=== PATIENT | male | born 1985 | race Caucasian/White ===

== ENCOUNTER 2020-11-15 17:30 | Emergency (ER) | payer OTHER ==
[~2020-11-15] VITALS: Ht 193 cm; Wt 106.6 kg
--- NOTE | 2020-11-16 08:20 | EKG ---
[facility] [address] [place], [place] [address] Signed Normal sinus rhythm Possible Left atrial enlargement Borderline ECG No previous ECGs available Confirmed by LORAINE IBRAHIM DO ([id number]) on 11/16/2020 8:20:20 AM Electronically Signed By: LORAINE IBRAHIM DO 11/16/20819 PATIENT NAME: [facility] Electrocardiogram DATE OF : 89 PHYSICIAN: LORAINE IBRAHIM DO REPORT #: [id number] REPORT IS CONFIDENTIAL AND NOT TO BE RELEASED WITHOUT AUTHORIZATION
== END 2020-11-15 19:20 | disposition home or self-care (01) ==
LOC: ED 17:30
DX: M54.12 Radiculopathy, cervical region (principal); Z88.5 Allergy status to narcotic agent; Z88.8 Allergy status to other drugs, medicaments and biological substances
CPT/HCPCS: 71045; 80053; 83735; 84484; 85025; 93005; 93010; 99285-25

== ENCOUNTER 2022-04-05 22:46 | Emergency (ER) | payer OTHER ==
[~2022-04-05] VITALS: Ht 193 cm; Wt 106.6 kg
[2022-04-05] MEDS ORDERED: GUAIFENESIN-CO118 ML PO (23:46)
== END 2022-04-06 00:11 | disposition home or self-care (01) ==
LOC: ED 22:46
DX: J40 Bronchitis, not specified as acute or chronic (principal); Z20.822 Contact with and (suspected) exposure to COVID-19; Z88.8 Allergy status to other drugs, medicaments and biological substances; Z88.5 Allergy status to narcotic agent
CPT/HCPCS: 71045; 87502; 99284-25; U0003